=== PATIENT | male | born 1940 | race Caucasian/White ===

== ENCOUNTER 2017-09-16 08:43 | Emergency (ER) | payer OTHER, MEDICARE, BC ==
[2017-09-16 09:52] VITALS: RESP 18; TEMP 97.8
[2017-09-16 11:53] VITALS: BP 157/78; PULSE 70; O2SAT 97
== END 2017-09-16 10:02 | disposition home or self-care (01) | DRG 605 ==
LOC: ED 08:43
DX: S80.02XA Contusion of left knee, initial encounter (principal); S30.1XXA Contusion of abdominal wall, initial encounter; S60.041A Contusion of right ring finger without damage to nail, initial encounter; V53.5XXA Driver of pick-up truck or van injured in collision with car, pick-up truck or van in traffic accident, initial encounter
CPT/HCPCS: 99283